=== PATIENT | female | born 1995 | race Two or more races ===

== ENCOUNTER 2019-03-16 13:37 | Emergency (ER) | payer SELFPAY ==
[~2019-03-16] VITALS: Ht 157.5 cm; Wt 69.4 kg
[~2019-03-16 13:37] MED LIST: NAPR-677 PO; OXYC1TAB15 PO
[2019-03-16] MEDS ORDERED: IV NORMAL SALINE 1000ML BAG 1,000 ML IV SCH (13:45)
[2019-03-16] MEDS ORDERED: MORPHINE SULFATE 4 MG/ML VIAL. IV/SQ PRN (13:45)
[2019-03-16 13:53] LABS: BASO % 0 % (0-3); EOS % 1 % (0-3); HEMATOCRIT 44.8 % (36.0-47.0); HEMOGLOBIN 15.1 g/dL (12.0-15.5); LYMPH # 1.5 x10^3/uL (1.0-4.8); LYMPH % 23 % (24-48); MEAN CORPUSCULAR HEMOGLOBIN 30 pg (25-35); MEAN CORPUSCULAR HGB CONC 34 g/dL (31-37); MEAN CORPUSCULAR VOLUME 89 fL (79-100); MONO # 0.5 x10^3/uL (0.0-1.1); MONO % 7 % (0-9); NEUT # 4.4 x10^3/uL (1.8-7.7); NEUT % 69 % (31-73); PLATELET COUNT 207 x10^3/uL (140-400); RED BLOOD COUNT 5.05 x10^6/uL (3.50-5.40); RED CELL DISTRIBUTION WIDTH 13.3 % (11.5-14.5); WHITE BLOOD COUNT 6.4 x10^3/uL (4.0-11.0)
[2019-03-16] MEDS ORDERED: IOHEXOL 300 MG/ML 100ML VIAL. IV ONE (14:15)
[2019-03-16] MEDS ORDERED: CONTRAST GIVEN. MC PRN (14:15)
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
[2019-03-16 14:37] LABS: CALCIUM 8.9 mg/dL (8.5-10.1); CREATININE 0.8 mg/dL (0.6-1.0); GFR 89.7; POTASSIUM 3.3 mmol/L (3.5-5.1)
[2019-03-16 14:44] LABS: ALBUMIN 4.1 g/dL (3.4-5.0); ALBUMIN/GLOBULIN RATIO 1.2 (1.0-1.7); TOTAL BILIRUBIN 0.4 mg/dL (0.2-1.0); TOTAL PROTEIN 7.5 g/dL (6.4-8.2)
[2019-03-16 14:57] LABS: BILIRUBIN,URINE NEGATIVE (NEG); CLARITY,URINE CLEAR; COLOR,URINE YELLOW; NITRITE,URINE NEGATIVE (NEG); PH,URINE 5.5; PROTEIN,URINE NEGATIVE (NEG-TRACE); UROBILINOGEN,URINE 0.2 mg/dL (0.2 mg/dL)
[2019-03-16 15:04] LABS: BACTERIA,URINE MANY /HPF (0-FEW); RBC,URINE OCC /HPF (0-2); SQUAMOUS EPITHELIAL CELL,UR MANY /LPF; WBC,URINE OCC /HPF (0-4)
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
[2019-03-16 15:54] VITALS: BP 117/55
== END 2019-03-16 16:42 | disposition home or self-care (01) ==
LOC: ER 13:37
DX: S20.219A Contusion of unspecified front wall of thorax, initial encounter (principal); M54.2 Cervicalgia; V89.2XXA Person injured in unspecified motor-vehicle accident, traffic, initial encounter; Y93.89 Activity, other specified; Y92.89 Other specified places as the place of occurrence of the external cause; Y99.8 Other external cause status
CPT/HCPCS: 36415; 70450; 71260; 72125; 74177; 80053; 81001; 81025; 83690; 84702; 85025; 87086; 96372; 99285; J2270; J7030; Q9967

== ENCOUNTER 2019-11-13 17:37 | Emergency (ER) | payer SELFPAY ==
[~2019-11-13] VITALS: Ht 160 cm; Wt 72.2 kg
[2019-11-13 17:50] VITALS: BP 135/71
[2019-11-13 18:32] LABS: BILIRUBIN,URINE NEGATIVE (NEG); CLARITY,URINE CLEAR; COLOR,URINE YELLOW; NITRITE,URINE NEGATIVE (NEG); PROTEIN,URINE NEGATIVE (NEG-TRACE); UROBILINOGEN,URINE 0.2 mg/dL (0.2 mg/dL)
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
[2019-11-13 18:47] LABS: SQUAMOUS EPITHELIAL CELL,UR MANY /LPF
[2019-11-13 18:48] LABS: BACTERIA,URINE FEW /HPF (0-FEW); RBC,URINE 0 /HPF (0-2)
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
[2019-11-13] MEDS ORDERED: CYCL10TA2 PO (20:12)
== END 2019-11-13 20:28 | disposition home or self-care (01) ==
LOC: ER 17:37
DX: O9A.311 Physical abuse complicating pregnancy, first trimester (principal); R10.31 Right lower quadrant pain; R10.32 Left lower quadrant pain; M54.5 Low back pain; M54.6 Pain in thoracic spine; Z3A.12 12 weeks gestation of pregnancy; Y04.0XXA Assault by unarmed brawl or fight, initial encounter; Y93.89 Activity, other specified; Y92.89 Other specified places as the place of occurrence of the external cause; Y99.8 Other external cause status
CPT/HCPCS: 76801; 81001; 81025; 87086; 99284-25